=== PATIENT | male | born 2000 | race Two or more races ===

== ENCOUNTER 2025-07-12 20:49 | Emergency (ER) | payer MEDICAID, SELFPAY ==
[2025-07-12 20:58] VITALS: BP 167/91; PULSE 80; RESP 28; TEMP 36.9; O2SAT 100
--- NOTE | 2025-07-12 21:07 | PD.EDRME ---
Rapid Medical Screening Exam [facility] Arrival date/time: 07/12/25 20:49 25M with history of stomach ulcers and marijuana use presents to ED with 1 day of burning ab pain and N/V. Patient has been taking his regular omeprazole. Chief Complaint: Abdominal Pain Time Seen by Provider: 07/12/25 21:05 Vital signs: Vital Signs Temperature 98.5 F 07/12/25 20:58 Pulse Rate 80 07/12/25 20:58 Respiratory Rate 28 H 07/12/25 20:58 Blood Pressure 167/91 H 07/12/25 20:58 Pulse Oximetry (%) 100 07/12/25 20:58 Oxygen Delivery Method Room Air 07/12/25 20:58
[2025-07-12 21:49] LABS: Basophils # (Auto) 0.0 Thou/mm3 (0.0-0.2); Basophils % (Auto) 0 % (0-2.5); Eosinophils # (Auto) 0.0 Thou/mm3 (0.0-0.5); Eosinophils % (Auto) 0 % (0-10); Hematocrit 47.5 % (41.0-53.0); Hemoglobin 17.4 g/dL (13.5-16.0); Immature Granulocytes Auto 0.02 Thou/mm3 (0.00-0.00); Lymphocytes # (Auto) 1.8 Thou/mm3 (1.0-4.8); Lymphocytes % (Auto) 18 % (10-50); Mean Corpuscular HGB Conc 36.6 g/dl (31.0-37.0); Mean Corpuscular Hemoglobin 30.1 pg (25.0-35.0); Mean Corpuscular Volume 82 fL (80-100); Monocytes # (Auto) 0.4 Thou/mm3 (0.0-0.8); Monocytes % (Auto) 4 % (0-12); Neutrophils # (Auto) 7.6 Thou/mm3 (1.8-7.7); Neutrophils % (Auto) 77 % (37-80); Nucleated Red Blood Cell # 0.00 Thou/mm3 (0.00-0.00); Nucleated Red Blood Cell % 0 /100 WBC (0); Platelet Count 272 Thou/mm3 (140-440); RDW Standard Deviation 36.2 fL (35.1-43.9); Red Blood Count 5.79 Miln/mm3 (4.50-5.90); White Blood Count 9.9 Thou/mm3 (3.8-10.6)
[2025-07-12] MEDS: ONDANSETRON INJ 2 MG/ML INJ 2 ML 4 MG IV (21:49)
[2025-07-12] MEDS: MORPHINE SULF INJ 4 MG/ML VIAL IV (21:50)
[2025-07-12 21:52] LABS: Alanine Aminotransferase 54 U/L (10-49); Albumin, Serum 5.6 gm/dL (3.5-5.0); Albumin/Globulin Ratio 2.1 (1.2-2.2); Alkaline Phosphatase 100 U/L (46-116); Amylase 126 U/L (30-118); Anion Gap 13 (7-16); Aspartate Amino Transferase 34 U/L (0-34); BUN/Creatinine Ratio 8 Ratio (12-20); Bilirubin,Total 1.1 mg/dL (0.3-1.2); Blood Urea Nitrogen 9 mg/dL (9-23); Calcium 10.3 mg/dL (8.3-10.6); Calcium (Corrected) 10.3 mg/dL (8.5-10.1); Carbon Dioxide 25.8 mMol/L (20.0-31.0); Chloride 103 mMol/L (98-107); Creatinine (Component) 1.1 mg/dL (0.6-1.3); Globulin 2.7 gm/dL (2.3-3.5); Glucose 106 mg/dL (74-106); Osmolality,Calculated 281 (275-295); Potassium 3.3 mMol/L (3.4-5.1); Sodium 142 mMol/L (136-145); Total Protein 8.3 gm/dL (5.7-8.2); eGFR > 60 See Note
[2025-07-12] MEDS: SODIUM CHLORIDE 0.9% 1000 ML 1,000 ML 999 ML IV (21:53)
[2025-07-12] MEDS: METOCLOPRAMIDE INJ 5 MG/ML VIAL 2 ML 10 MG IVP (21:53)
[2025-07-12 22:00] VITALS: BP 145/71; PULSE 78; RESP 18; TEMP 36.1; O2SAT 98
[2025-07-13] VITALS: BP 148/72; PULSE 64; RESP 16; O2SAT 98
--- NOTE | 2025-07-13 00:14 | XR_ITS ---
Examination: Abdomen sonogram, Limited Date and time of exam: July 13, 2025, 0124 hrs. Technique: Real-time bowman scale transabdominal sonographic images of the upper abdomen obtained. Findings: Normal gallbladder. Normal common bile duct 0.50 cm Pancreas obscured by bowel gas Liver 14.5 cm no liver lesions Normal hepatopedal portal venous flow Patent IVC Impression: Normal gallbladder
--- NOTE | 2025-07-13 01:35 | EDNOTE_ITS ---
ED Abdominal Pain RME/HPI General Chief Complaint: Abdominal Pain Stated complaint: ABDOMINAL PAIN Time seen by provider: 07/12/25 21:05 Arrival date/time: 07/12/25 20:49 RME / HPI RME / HPI narrative: 07/12/25 20:49 25M with history of stomach ulcers and marijuana use presents to ED with 1 day of burning ab pain and N/V. Patient has been taking his regular omeprazole. DR. RITTER MAIN ED EVALUATION: Patient with Hx of presumptive peptic ulcer presenting with predominantly epigastric abdominal pain x several days duration with several bouts of bilius emesis during the day presentation. Reports dark stool though denies hematemesis. No urinary urgency, frequency, or dysuria. No URI symptoms or cough. PMHx: presumptive peptic ulcer. PSHx: unremarkable. Allergies: none. Social Hx: positive for tobacco although denies ethanol, reported marijuana use. Related Data Previous Rx's ?Medication ?Instructions ?Recorded hydrocodone 5 mg-acetaminophen 325 1 tab PO TID PRN pa in #14 tabs 07/13/25 mg tablet metoclopramide HCl 10 mg tablet 10 mg PO Q6H PRN nause a and 07/13/25 vomiting #28 tabs pantoprazole 40 mg tablet,delayed 40 mg PO QDAY #30 ta bs 07/13/25 release Allergies Allergy/AdvReac Type Severity Reaction Status Date / Time No Known Allergies Allergy Verified 07/12/25 20:50 Review of Systems Review of Systems Systems Reviewed: All systems reviewed, normal except as documented Past Medical History Past Medical History GASTROINTESTINAL: Positive Ulcer Social History SMOKING STATUS: Former smoker SUBSTANCE USE: marijuana ED Exam Narrative Physical exam: GEN. APPEARANCE: The patient is alert awake oriented X-3 in no distress, lying down comfortably, does not look ill/toxic. Patient has good eye contact. Patient is cooperative. Reports overall improvement having received propolsive agents and antacid. VITALS: All vitals were reviewed and the pulse ox is 99% on room air which is normal according to my interpretation. HEENT: Normocephalic, atraumatic. Pupils are equal and reactive. Oral mucosa is moist. Patent Nares NECK: Supple, nontender, no thyromegaly, no meningismus, no JVD, no step offs CHEST: Symmetrical, atraumatic, and with equal expansion , Nontender on palpat ion no deformity and no crepitus. CARDIOVASCULAR: Heart regular rhythm no murmur or gallop rub or extra beats. LUNGS: Clear to auscultation bilaterally with symmetrical chest rise. No laboring tachypnea or wheezing. No intercostal subcostal retraction. No rales and no rhonchi. ABDOMEN: Soft, flat, TTP predominantly epigastric RUQ, no gross peritoneal findings. There are no abnormal masses palpated. Active and normal bowel sounds. EXTREMITIES: Nontender. No edema. No cyanosis. Patient is able to move all 4 extremities well, with full ROM and good CSM. SKIN: Warm and dry, no jaundice or rashes noted. MUSCULOSKELETAL: No lubar or midline bony tenderness. There is no CVA tenderness. No paraspinal muscle spasm or tenderness. NEURO: Patient is OSORIO x 4, Cranial nerves II through XII grossly intact. There is no focal neurologic deficits noted. GCS is 15, PNS and OVER HAULER HELPER appear grossly intact. PSYCHIATRIC: Patient is in normal mood and affect, cooperative, no SI or HI or hallucinations. Course Quality Measures none Orders Category Date Time Status Insert IV NOW Care 07/12/25 21:17 Completed US gall bladder Stat Exams 07/13/25 00:14 Taken Amylase Stat Lab 07/12/25 21:27 Completed CBC Stat Lab 07/12/25 21:27 Completed CMP [Comprehensive Metabolic Panel] Stat Lab 07/12/25 21:27 Completed DiphenhydrAMINE INJ [Benadryl Inj] Med 07/12/25 21:18 Discontinued 12.5 mg IVP X1 ONE Famotidine [Pepcid] Med 07/12/25 21:06 Discontinued 40 mg PO X1 ONE Lidocaine 2% Viscous [Xylocaine 2% Viscous] Med 07/12/25 21:06 Discontinued 15 ml PO X1 ONE Metoclopramide Inj [Reglan Inj] Med 07/12/25 21:18 Discontinued 10 mg IVP X1 ONE Morphine* Inj Med 07/12/25 21:37 Discontinued 4 mg IV X1 ONE Morphine* Inj Med 07/12/25 21:35 Discontinued 5 mg IV X1 ONE Ondansetron Inj [Zofran Inj] Med 07/12/25 21:18 Discontinued 4 mg IV X1 ONE Pantoprazole Inj [Protonix Inj] Med 07/12/25 21:17 Discontinued 80 mg IVP X1 ONE Sodium Chloride 0.9% 1000 ml [Ns] 1,000 ml Med 07/12/25 21:17 Discontinued IV 999 mls/hr Vital Signs Vital signs: Vital Signs Temperature 98.5 F 07/12/25 20:58 Pulse Rate 80 07/12/25 20:58 Respiratory Rate 28 H 07/12/25 20:58 Blood Pressure 167/91 H 07/12/25 20:58 Pulse Oximetry (%) 100 07/12/25 20:58 Oxygen Delivery Method Room Air 07/12/25 20:58 PROCEDURES: Stool Hemoccult Procedural Steps Taken: stool placed in appropriate test area, developer placed on stool and control areas and controls appropriately positive and negative Hemoccult result: positive Abdominal Pain MDM MDM Narrative MDM Narrative:: Scribe Attestation: Meena Fermin, yamil scribing for and in the presence of Dr. Ritter. Provider Notation: Although this document has been carefully reviewed, there may still be some phonetic and other typographical errors. These errors are purely grammatical due to imperfections in the software program and should not be construed in any way to compromise the substance of the patient's medical care during this visit. Patient with Hx of presumptive peptic ulcer presenting with predominantly epigastric abdominal pain x several days duration with several bouts of bilius emesis during the day presentation. Reports dark stool though denies hematemesis. No urinary urgency, frequency, or dysuria. Please see PE findings. Laboratory markers demonstrate elevated hemo-concentration with hemoglobin of 17.4, no thrombocytopenia. Serum chemistries demonstrate slightly low potassium of 3.3, normal renal fxn, and slightly elevated amylase 126. Patient was placed on monitor, IV established, patient received GI cocktal in conjucntion with IV narcotic analgesics withe mild to moderate relief. Patient also received antacid and reports overall improvement. Given mildly elevated amylase, and reported dark stool, suspect gastritis vs peptic ulcer disease in the setting of acute pancreatitis. Patient remained hemodynamically stable and if able to tolerate PO will discharge with recommendations of clear liquid diet for 24 -48 hours, narcotic analgesics, and antacids for 7 days. Rectal exam demonstrates dark stool which was hemoccult positive. F/U with GI for endocsopy. Patient data External records reviewed:: [facility] previous records (No prior ED records available for review.) Clinical information provided by:: patient Social determinants that could affect healthcare access:: substance use (Marijuana) Patient has the following chronic illnesses:: None reported How is presenting disease/condition affected by chronic disease/condition?: no chronic disease Evaluation data The following diagnostics were reviewed and interpreted by me:: lab results and radiology exam(s) Lab and/or radiology exams considered but not ordered:: None Interpretation Summary: RADIOLOGY Gall Bladder US: Findings: The visualized liver is normal in echogenicity without mass or ductal dilatation. No gallbladder calculus, wall thickening or pericholecystic fluid is identified. The common duct is normal in caliber at 4.7 mm. No free fluid is demonstrated on the submitted images. The portal vein is patent with hepatopetal flow and normal wave Doppler spectral analysis. The inferior vena cava is patent with normal wave Doppler spectral analysis. Degroot sign is not available at the time of this report. Impression: Unremarkable gallbladder sonogram. Medications / Prescriptions Medications or Prescriptions considered but not ordered:: None Medication administrations:: Medication Administration History Discontinued Medications Diphenhydramine HCl (Diphenhydramine Inj 50 Mg/Ml Vial) 12.5 mg IVP X1 ONE Stop: 07/12/25 21:19 Last Admin: 07/12/25 21:51 Dose: 12.5 mg Documented By: SHERON Famotidine (Famotidine 20 Mg Tablet) 40 mg PO X1 ONE Stop: 07/12/25 21:07 Last Admin: 07/12/25 22:03 Dose: Not Given Documented By: SHERON Non-Admin Reason: Cancelled by Provider Sodium Chloride (Ns) 1,000 mls @ 999 mls/hr IV .Q1H1M ONE Stop: 07/12/25 22:17 Last Infusion: 07/13/25 00:00 Dose: Infused Documented By: Admin: 07/12/25 21:53 Dose: 999 mls/hr Documented By: SHERON Lidocaine HCl (Lidocaine Viscous 2% 15 Ml Udc) 15 ml PO X1 ONE Stop: 07/12/25 21:07 Last Admin: 07/12/25 22:03 Dose: Not Given Documented By: SHERON Non-Admin Reason: Cancelled by Provider Metoclopramide HCl (Metoclopramide Inj 5 Mg/Ml Vial 2 Ml) 10 mg IVP X1 ONE; Protocol Stop: 07/12/25 21:19 Last Admin: 07/12/25 21:53 Dose: 10 mg Documented By: SHERON Morphine Sulfate (Morphine Sulf Inj 4 Mg/Ml Vial) 5 mg IV X1 ONE Stop: 07/12/25 21:36 Last Admin: 07/12/25 22:04 Dose: Not Given Documented By: SHERON Non-Admin Reason: Cancelled by Provider Morphine Sulfate (Morphine Sulf Inj 4 Mg/Ml Vial) 4 mg IV X1 ONE Stop: 07/12/25 21:38 Last Admin: 07/12/25 21:50 Dose: 4 mg Documented By: SHERON Comments: over 2 min IV Ondansetron HCl (Ondansetron Inj 2 Mg/Ml Inj 2 Ml) 4 mg IV X1 ONE; Protocol Stop: 07/12/25 21:19 Last Admin: 07/12/25 21:49 Dose: 4 mg Documented By: SHERON Pantoprazole Sodium (Pantoprazole Inj 40 Mg Vial) 80 mg IVP X1 ONE Stop: 07/12/25 21:18 Last Admin: 07/12/25 21:52 Dose: 80 mg Documented By: SHERON See above if any Consultations Consultation(s) initiated? (list below): No Diagnosis Differential diagnosis abdominal pain: abdominal pain, acute appendicitis, carmelo culus of kidney, constipation, diverticulitis, gastroenteritis, pancreatitis and small bowel obstruction Most likely diagnosis given after review of the tests above:: Acute pancreatitis, Acute gastritis, Acute upper gastrointestinal bleeding Admission Indicated Admission indicated?: not indicated Explain why admission is indicated or not indicated:: Patient does not meet admission criteria Admission Request Was there a request for admission?: No Disposition Plan Disposition Plan: Discharge Discharge Attestation Discharge Attestation: The patient and all family members were given an opportunity to ask questions and understood the discharge instructions. Discharge instructions specifically effects, indications for sooner follow up or return to the emergency department, and the expected course of current diagnosis. Patient condition: Stable Discharge Plan Plan Patient Disposition: HOME (Self Care) Discharge Disposition comment: Stable Prescriptions/Referrals Prescriptions/Med Rec: New hydrocodone-acetaminophen 5-325 mg tablet 1 tab PO TID MDD 3 tab PRN (Reason: pain) Qty: 14 0RF pantoprazole 40 mg tablet,delayed release (DR/EC) 40 mg PO QDAY Qty: 30 0RF metoclopramide HCl 10 mg tablet 10 mg PO Q6H PRN (Reason: nausea and vomiting) Qty: 28 0RF Referrals: No Primary/Family,Physician [Primary Care Provider] - In 1 week Problem List Clinical Impression: Acute pancreatitis, Acute gastritis, Pancreatitis, Acute upper gastrointestinal bleeding Patient/Caregiver Discharge Instructions Discharge Activity: activity as tolerated Diet Instructions: Avoid hot spicy foods. No aspirin like products. Avoid alcohol consumption and tobacco usage Education Materials: Pancreatitis Acute Dc, ED Gastritis (Adult), ED Pancreatitis Additional Instructions: Medication as directed. Follow-up with GI for consideration of upper endoscopy. Return for persistent dark tarry stools/vomiting gross blood etc. Print Language: Kittitian Stand Alone Forms: Mary Ellen Award Info., Patient Portal Info Letter
[2025-07-13 01:56] VITALS: BP 141/69; PULSE 61; RESP 18; TEMP 36.6; O2SAT 99
--- NOTE | 2025-07-13 02:00 | PRELIM_ITS ---
Gallbladder ultrasound with Doppler and wave Doppler spectral analysis. July 13, 2025 0124 hours Clinical history: Epigastric pain Comparison: None available at the time of this report. Findings: The visualized liver is normal in echogenicity without mass or ductal dilatation. No gallbladder calculus, wall thickening or pericholecystic fluid is identified. The common duct is normal in caliber at 4.7 mm. No free fluid is demonstrated on the submitted images. The portal vein is patent with hepatopetal flow and normal wave Doppler spectral analysis. The inferior vena cava is patent with normal wave Doppler spectral analysis. Degroot sign is not available at the time of this report. Impression: Unremarkable gallbladder sonogram. Report Electronically Signed By: Wild Alexander 07/13/2025 1:59:34 AM [EST]
[2025-07-13 02:45] VITALS: BP 113/64; PULSE 53; RESP 16; TEMP 37; O2SAT 96
[2025-07-13 03:11] VITALS: BP 148/77; PULSE 70; RESP 18; TEMP 36.7; O2SAT 99
== END 2025-07-13 03:13 | disposition home or self-care (01) ==
PROVIDERS: Physician Assistant; Emergency Provider Emergency Medicine
DX: K85.90 Acute pancreatitis without necrosis or infection, unspecified (principal); K29.01 Acute gastritis with bleeding
CPT/HCPCS: 36415; 76705; 80053; 82150; 85025; 99283; J1200; J2270; J2405; J2470; J2765; J7030

== ENCOUNTER 2025-10-24 11:04 | Emergency (ER) | payer MEDICAID, SELFPAY ==
[2025-10-24 11:24] VITALS: BP 152/95; PULSE 64; RESP 21; TEMP 36.8; O2SAT 100; BMI 31.2
--- NOTE | 2025-10-24 11:26 | XR_ITS ---
Examination: Abdomen sonogram, Limited Date and time of exam: October 24, 2025, 1350 hours INDICATIONS: Right upper abdominal pain beginning 1 week ago Technique: Real-time bowman scale transabdominal sonographic images of the upper abdomen obtained. Findings: Normal gallbladder Normal common bile duct 0.1 cm Pancreatic head 2.9 cm Liver 14.5 cm no liver lesions Normal hepatopetal portal venous flow Patent IVC IMPRESSION: Negative study
--- NOTE | 2025-10-24 11:28 | PD.EDRME ---
Rapid Medical Screening Exam RME Arrival date/time: 10/24/25 11:04 25-year-old male presents to the Emergency Department of complaint of nausea vomiting and abdominal pain Chief Complaint: Nausea/Vomiting/Diarrhea Vital signs: Vital Signs Temperature 98.3 F 10/24/25 11:24 Pulse Rate 64 10/24/25 11:24 Respiratory Rate 21 H 10/24/25 11:24 Blood Pressure 152/95 H 10/24/25 11:24 Pulse Oximetry (%) 100 10/24/25 11:24 Oxygen Delivery Method Room Air 10/24/25 11:24 Vital signs reviewed by provider: Yes Exam: On exam well-appearing does not appear ill or toxic no acute distress Clinical Impression: Lab work imaging obtained patient given medication for nausea vomiting
[2025-10-24] MEDS: METOCLOPRAMIDE INJ 5 MG/ML VIAL 2 ML 10 MG IM (11:57)
[2025-10-24] MEDS: HYDROmorphone INJ 2 MG/ML VIAL 0.5 MG IM (12:07)
[2025-10-24 12:14] LABS: Basophils # (Auto) 0.1 Thou/mm3 (0.0-0.2); Basophils % (Auto) 0 % (0-2.5); Eosinophils # (Auto) 0.0 Thou/mm3 (0.0-0.5); Eosinophils % (Auto) 0 % (0-10); Hematocrit 47.9 % (41.0-53.0); Hemoglobin 16.7 g/dL (13.5-16.0); Immature Granulocytes Auto 0.06 Thou/mm3 (0.00-0.00); Lymphocytes # (Auto) 1.8 Thou/mm3 (1.0-4.8); Lymphocytes % (Auto) 12 % (10-50); Mean Corpuscular HGB Conc 34.9 g/dl (31.0-37.0); Mean Corpuscular Hemoglobin 28.7 pg (25.0-35.0); Mean Corpuscular Volume 82 fL (80-100); Monocytes # (Auto) 0.4 Thou/mm3 (0.0-0.8); Monocytes % (Auto) 3 % (0-12); Neutrophils # (Auto) 11.9 Thou/mm3 (1.8-7.7); Neutrophils % (Auto) 84 % (37-80); Nucleated Red Blood Cell # 0.00 Thou/mm3 (0.00-0.00); Nucleated Red Blood Cell % 0 /100 WBC (0); Platelet Count 283 Thou/mm3 (140-440); RDW Standard Deviation 36.8 fL (35.1-43.9); Red Blood Count 5.82 Miln/mm3 (4.50-5.90); White Blood Count 14.2 Thou/mm3 (3.8-10.6)
[2025-10-24 12:39] LABS: Alanine Aminotransferase 52 U/L (10-49); Albumin, Serum 5.6 gm/dL (3.5-5.0); Albumin/Globulin Ratio 1.8 (1.2-2.2); Alkaline Phosphatase 102 U/L (46-116); Anion Gap 14 (7-16); Aspartate Amino Transferase 32 U/L (0-34); BUN/Creatinine Ratio 9 Ratio (12-20); Bilirubin,Total 1.0 mg/dL (0.3-1.2); Blood Urea Nitrogen 9 mg/dL (9-23); Calcium 9.8 mg/dL (8.3-10.6); Calcium (Corrected) 9.8 mg/dL (8.5-10.1); Carbon Dioxide 26.9 mMol/L (20.0-31.0); Chloride 103 mMol/L (98-107); Creatinine (Component) 1.0 mg/dL (0.6-1.3); Estimated Creatinine Clearance 115.2 mL/min (>60); Globulin 3.2 gm/dL (2.3-3.5); Glucose 118 mg/dL (74-106); Lipase 34 U/L (12-53); Osmolality,Calculated 286 (275-295); Potassium 3.9 mMol/L (3.4-5.1); Sodium 144 mMol/L (136-145); Total Protein 8.8 gm/dL (5.7-8.2); eGFR > 60 See Note
[2025-10-24 14:21] VITALS: BP 139/89; PULSE 64; RESP 18; TEMP 36.9; O2SAT 99
[2025-10-24] MEDS: ONDANSETRON INJ 2 MG/ML INJ 2 ML 4 MG IM (15:08)
--- NOTE | 2025-10-24 15:39 | XR_ITS ---
Examination: CT abdomen and pelvis without contrast. Coronal 3-D reconstructions. Sagittal 2-D reconstructions. Date and time of exam: October 24, 2025, 1622 hours INDICATIONS: Lower abdominal pain with nausea today CTDI: vol (mGy): 8.62 DLP: (mGycm): 520 Technique: Axial images of the abdomen have been obtained, 3 mm slice thickness Intravenous contrast material has not been administered. Low dose protocols were performed. One or more of the following dose reduction techniques were used; automated exposure control, adjustment of the mA and/or KV according to patient size, use of iterative reconstruction technique. Findings: No visualized liver or splenic lesion No gallstones No pancreatic or adrenal mass No renal or ureteral calculi, no hydronephrosis Aorta normal size 10 mm fat-containing umbilical hernia Normal appendix No bowel obstruction No diverticulitis Normal seminal vesicles Normal prostate Contracted urinary bladder Intact osseous structures IMPRESSION: No renal or ureteral calculi, no hydronephrosis Normal appendix No bowel obstruction diverticulitis or free air
[2025-10-24] MEDS: HYDROmorphone INJ 2 MG/ML VIAL 1 MG IVP (16:10)
[2025-10-24] MEDS: PROCHLORPERAZINE INJ 5 MG/ML VIAL 2 ML 10 MG IV (16:10)
[2025-10-24 16:16] VITALS: BP 155/75; PULSE 75; RESP 18; TEMP 37.2; O2SAT 95
[2025-10-24 16:25] LABS: Collection Type, Urine Clean Catch
[2025-10-24 16:40] LABS: Amphetamine/Methamp Scrn,U Negative (Negative); Barbiturate Screen,Urine Negative (Negative); Benzodiazepines Screen,Urine Negative (Negative); Benzoylecgonine Screen, Ur Negative (Negative); Fentanyl Screen,Urine Negative (Negative); Opiate Screen,Urine Positive (Negative); THC Screen,Urine Positive (Negative)
[2025-10-24 16:53] LABS: Bacteria,Urine Rare; Bilirubin,Urine Negative (Negative); Blood,Urine Negative (Negative); Clarity,Urine Clear (Clear/Hazy); Color,Urine Yellow (Lt Yel-Yel); Culture Indicated,Urine Not Indicated; Glucose, Urine Negative (Negative); Ketones,Urine Trace (Negative); Leukocyte Esterase,Urine Negative (Negative); Nitrite,Urine Negative (Negative); PH,Urine 7.0 (5.0-7.0); Protein,Urine 1+ (Neg - Trace); RBC,Urine 9 /hpf (0-3); Specific Gravity,Urine 1.025 (1.001-1.035); Squamous Epithelial Cell,Urine < 1 /hpf (0-5); Urobilinogen,Urine Negative mg/dL (0.0-1.0); WBC,Urine 1 /hpf (0-5)
[2025-10-24 17:30] VITALS: BP 125/74; PULSE 73; RESP 18; TEMP 36.7; O2SAT 97
[2025-10-24 20:18] VITALS: BP 139/73; PULSE 70; RESP 20; TEMP 36.9; O2SAT 96
--- NOTE | 2025-10-24 21:27 | EDNOTE_ITS ---
Nausea/Vomit./Diarrhea-RME/HPI General Chief complaint: Nausea/Vomiting/Diarrhea Stated complaint: Vomiting this morning, abdominal pain Time Seen by Provider: 10/24/25 11:52 Source: patient Arrival date/time: 10/24/25 11:04 Mode of arrival: ambulatory Limitations: language barrier RME / HPI RME / HPI Narrative: 10/24/25 11:04 25-year-old male presents to the Emergency Department of complaint of nausea vomiting and abdominal pain Exam: On exam patient appears mildly toxic with diffuse abdominal pain concerns. Impression: Lab work imaging obtained patient given medication for nausea vomiting Related Data Previous Rx's ?Medication ?Instructions ?Recorded hydrocodone 5 mg-acetaminophen 325 1 tab PO TID PRN pa in #14 tabs 07/13/25 mg tablet metoclopramide HCl 10 mg tablet 10 mg PO Q6H PRN nause a and 07/13/25 vomiting #28 tabs pantoprazole 40 mg tablet,delayed 40 mg PO QDAY #30 ta bs 07/13/25 release acetaminophen 500 mg tablet 500 mg PO Q4H PRN fever or pain 10/24/25 (Tylenol Extra Strength) #30 tabs dicyclomine 10 mg capsule 10 mg PO QID PRN abdominal p ain 10/24/25 #20 caps metoclopramide HCl 10 mg tablet 10 mg PO Q6H PRN nause a and 10/24/25 (Reglan) vomiting #15 tabs ondansetron 4 mg disintegrating 4 mg PO Q6H PRN nausea and 10/24/25 tablet vomiting #20 tabs Allergies Allergy/AdvReac Type Severity Reaction Status Date / Time No Known Allergies Allergy Verified 10/24/25 11:08 Review of Systems Review of Systems Systems Reviewed: All systems reviewed, normal except as documented Past Medical History Past Medical History CARDIAC: Negative Cardiac Disorders or Congestive Heart Failure RESPIRATORY: Negative Chronic Obstructive Pulmonary Disease (COPD) or Asthma GASTROINTESTINAL: Positive Ulcer GENITOURINARY: Negative Renal Disease ENDOCRINE: Negative Diabetes Mellitus Type 1 or Diabetes Mellitus Type 2 HEMATOLOGIC: Negative Sickle Cell Disease Social History SMOKING STATUS: Current every day smoker SUBSTANCE USE: marijuana ED Exam Narrative Physical exam: Patient appears mildly toxic at time of evaluation with diffuse abdominal pain concerns. General Limitations: Present language barrier General appearance: Present alert and in distress Head Head exam: Present atraumatic Eye Eye exam: Present normal appearance, PERRL and EOMI ENT ENT exam: Present normal exam, normal oropharynx and mucous membranes moist Neck Neck exam: Present normal inspection, full ROM and trachea midline Chest Chest inspection: Present normal inspection and symmetric chest wall rise Respiratory Respiratory exam: Present normal lung sounds bilaterally Cardiovascular Cardiovascular exam: Present regular rate, normal rhythm and normal heart sounds Abdominal Exam Abdominal exam: Present other (Diffuse nonspecific abdominal tenderness to palpation throughout the epigastric region and radiating down to the right upper quadrant to the right lower quadrant. No definitive Degroot or McBurney's noted. Abdomen was reasonably soft. No pulsatile masses.) Abdominal tenderness: Present RUQ, RLQ, epigastrium and diffuse Extremities Exam Extremities exam: Present normal inspection and full ROM Back Exam Back exam: Present normal inspection and full ROM Neurological Exam Neurological exam: Present alert, oriented X3 and CN II-XII intact Psychiatric Psychiatric exam: Present normal affect and normal mood Skin Skin exam: Present warm, dry, intact and normal color Course Quality Measures none Orders Category Date Time Status CT abdomen pelvis wo con Stat Exams 10/24/25 15:39 Completed US gall bladder Stat Exams 10/24/25 11:26 Completed CBC Stat Lab 10/24/25 11:57 Completed Comprehensive Metabolic Panel Stat Lab 10/24/25 11:57 Completed Drug Screen,Urine Stat Lab 10/24/25 15:55 Completed Lipase Stat Lab 10/24/25 11:57 Completed UA, C/S IF [Urinalysis, C/S if Indicated] Stat Lab 10/24/25 15:55 Completed HYDROmorphone INJ [Dilaudid Inj] Med 10/24/25 11:57 Discontinued 0.5 mg IM X1 ONE HYDROmorphone INJ [Dilaudid Inj] Med 10/24/25 15:39 Discontinued 1 mg IVP X1 ONE Metoclopramide Inj [Reglan Inj] Med 10/24/25 11:27 Discontinued 10 mg IM X1 ONE Ondansetron Inj [Zofran Inj] Med 10/24/25 14:49 Discontinued 4 mg IM X1 ONE Prochlorperazine Inj [Compazine Inj] Med 10/24/25 15:39 Discontinued 10 mg IV X1 ONE As noted above Vital Signs Vital signs: Vital Signs Temperature 98.3 F 10/24/25 11:24 Pulse Rate 64 10/24/25 11:24 Respiratory Rate 21 H 10/24/25 11:24 Blood Pressure 152/95 H 10/24/25 11:24 Pulse Oximetry (%) 100 10/24/25 11:24 Oxygen Delivery Method Room Air 10/24/25 11:24 As noted above Nausea/Vomiting/Diarrhea MDM Narrative MDM Narrative:: All studies performed the ED were evaluated by me personally. Serum studies were relatively unremarkable for any systemic concerns. Ultrasound of the right upper quadrant was unremarkable for any definitive cholecystitis, but the patient continued to complain of significant pain. CT evaluation was ordered and results were unremarkable for any acute findings. No pancreatitis noted. No hepatomegaly or hepatic steatosis noted. Patient appears to be suffering from a gastroenteritis event. Advised medication as needed for symptomatic relief as well as good hydration and healthy nutrition. Patient data External records reviewed:: [facility] previous records Clinical information provided by:: patient Social determinants that could affect healthcare access:: none Patient has the following chronic illnesses:: None How is presenting disease/condition affected by chronic disease/condition?: uneffected by Evaluation data The following diagnostics were reviewed and interpreted by me:: lab results and radiology exam(s) Lab and/or radiology exams considered but not ordered:: None Interpretation Summary: Viral gastroenteritis Medications / Prescriptions Medications / Prescriptions considered but not ordered:: None Medication administrations:: Medication Administration History Discontinued Medications Hydromorphone HCl (Hydromorphone Inj 2 Mg/Ml Vial) 0.5 mg IM X1 ONE Stop: 10/24/25 11:58 Last Admin: 10/24/25 12:07 Dose: 0.5 mg Documented By: MORIS Hydromorphone HCl (Hydromorphone Inj 2 Mg/Ml Vial) 1 mg IVP X1 ONE Stop: 10/24/25 15:40 Last Admin: 10/24/25 16:10 Dose: 1 mg Documented By: AC Metoclopramide HCl (Metoclopramide Inj 5 Mg/Ml Vial 2 Ml) 10 mg IM X1 ONE; Protocol Stop: 10/24/25 11:28 Last Admin: 10/24/25 11:57 Dose: 10 mg Documented By: Ondansetron HCl (Ondansetron Inj 2 Mg/Ml Inj 2 Ml) 4 mg IM X1 ONE; Protocol Stop: 10/24/25 14:50 Last Admin: 10/24/25 15:08 Dose: 4 mg Documented By: MARYBETH Prochlorperazine Edisylate (Prochlorperazine Inj 5 Mg/Ml Vial 2 Ml) 10 mg IV X1 ONE; Protocol Stop: 10/24/25 15:40 Last Admin: 10/24/25 16:10 Dose: 10 mg Documented By: MARYBETH As noted above Consultations Consultation(s) initiated? (list below): No Diagnosis Nausea Differential Diagnosis: other (Pancreatitis, hepatic steatosis, cholecystitis, choledocholithiasis, gastroenteritis) Most likely diagnosis given after review of the tests above:: Gastroenteritis Admission Indicated Admission indicated?: not indicated Explain why admission is indicated or not indicated:: Unwarranted Admission Request Was there a request for admission?: No Disposition Plan Disposition Plan: Discharge Discharge Attestation Discharge Attestation: The patient and all family members were given an opportunity to ask questions and understood the discharge instructions. Discharge instructions specifically effects, indications for sooner follow up or return to the emergency department, and the expected course of current diagnosis. Patient condition: Stable Discharge Plan Plan Patient Disposition: HOME (Self Care) Prescriptions/Referrals Prescriptions/Med Rec: New ondansetron 4 mg tablet,disintegrating 4 mg PO Q6H PRN (Reason: nausea and vomiting) Qty: 20 0RF dicyclomine 10 mg capsule 10 mg PO QID PRN (Reason: abdominal pain) Qty: 20 0RF metoclopramide HCl [Reglan] 10 mg tablet 10 mg PO Q6H PRN (Reason: nausea and vomiting) Qty: 15 0RF acetaminophen [Tylenol Extra Strength] 500 mg tablet 500 mg PO Q4H PRN (Reason: fever or pain) Qty: 30 0RF No Action hydrocodone-acetaminophen 5-325 mg tablet 1 tab PO TID MDD 3 tab PRN (Reason: pain) Qty: 14 0RF pantoprazole 40 mg tablet,delayed release (DR/EC) 40 mg PO QDAY Qty: 30 0RF metoclopramide HCl 10 mg tablet 10 mg PO Q6H PRN (Reason: nausea and vomiting) Qty: 28 0RF Referrals: No Primary/Family,Physician [Primary Care Provider] - In 1 week Problem List Clinical Impression: Gastroenteritis Patient/Caregiver Discharge Instructions Education Materials: ED Gastroenteritis, Noninfectious Print Language: Kazakh Stand Alone Forms: Mary Ellen Award Info., Patient Portal Info Letter
[2025-10-24 21:46] VITALS: BP 147/77; PULSE 85; RESP 18; TEMP 37.3; O2SAT 99
== END 2025-10-24 21:56 | disposition home or self-care (01) ==
PROVIDERS: Nurse Practitioner Primary Care; Emergency Provider Family Medicine
DX: K52.9 Noninfective gastroenteritis and colitis, unspecified (principal)
CPT/HCPCS: 36415; 74176; 76705; 80053; 80307; 81001; 83690; 85025; 96372; 96374; 96375; 99284; J0780; J1171; J2405; J2765

== ENCOUNTER 2025-10-24 23:41 | Emergency (ER) | payer MEDICAID, SELFPAY ==
[2025-10-24 23:42] VITALS: BMI 30.9
[2025-10-24 23:56] VITALS: BP 153/72; PULSE 75; RESP 20; TEMP 36.9; O2SAT 97
--- NOTE | 2025-10-25 00:11 | PD.EDANX ---
ED Anxiety RME/HPI General Chief Complaint: General Adult/Misc Complain Stated Complaint: MEDICATION REACTION Time Seen by Provider: 10/25/25 00:01 Arrival date/time: 10/24/25 23:41 25M with history of gastritis presents to ED with generalized restlessness and anxiety and been given IV Reglan and Compazine earlier today during previous visit. Limitations: no limitations Related Data Previous Rx's ?Medication ?Instructions ?Recorded hydrocodone 5 mg-acetaminophen 325 1 tab PO TID PRN pain #14 tabs 07/13/25 mg tablet metoclopramide HCl 10 mg tablet 10 mg PO Q6H PRN nausea and 07/13/25 vomiting #28 tabs pantoprazole 40 mg tablet,delayed 40 mg PO QDAY #30 tabs 07/13/25 release acetaminophen 500 mg tablet 500 mg PO Q4H PRN fever or pain 10/24/25 (Tylenol Extra Strength) #30 tabs dicyclomine 10 mg capsule 10 mg PO QID PRN abdominal pain 10/24/25 #20 caps metoclopramide HCl 10 mg tablet 10 mg PO Q6H PRN nausea and 10/24/25 (Reglan) vomiting #15 tabs ondansetron 4 mg disintegrating 4 mg PO Q6H PRN nausea and 10/24/25 tablet vomiting #20 tabs Allergies Allergy/AdvReac Type Severity Reaction Status Date / Time No Known Allergies Allergy Verified 10/24/25 23:44 Review of Systems Review of Systems Systems Reviewed: All systems reviewed, normal except as documented Neurologic Neurologic: Reports as per HPI and Reports other (restlessness) Psychiatric Psychiatric: Reports as per HPI and Reports anxiety Past Medical History Past Medical History CARDIAC: Negative Cardiac Disorders or Congestive Heart Failure RESPIRATORY: Negative Chronic Obstructive Pulmonary Disease (COPD) or Asthma GASTROINTESTINAL: Positive Ulcer GENITOURINARY: Negative Renal Disease ENDOCRINE: Negative Diabetes Mellitus Type 1 or Diabetes Mellitus Type 2 HEMATOLOGIC: Negative Sickle Cell Disease Social History SMOKING STATUS: Current some day smoker SUBSTANCE USE: marijuana ED Exam General Limitations: Present no limitations General appearance: Present alert and anxious Head Head exam: Present atraumatic Neck Neck exam: Present normal inspection, full ROM and trachea midline Chest Chest inspection: Present normal inspection and symmetric chest wall rise Neurological Exam Neurological exam: Present alert and oriented X3 Psychiatric Psychiatric exam: Present normal affect and anxious Skin Skin exam: Present warm, dry, intact and normal color Course Quality Measures none Orders Category Date Time Status DiphenhydrAMINE INJ [Benadryl Inj] Med 10/25/25 00:01 Discontinued 50 mg IM X1 ONE Vital Signs Vital signs: Vital Signs Temperature 98.4 F 10/24/25 23:56 Pulse Rate 75 10/24/25 23:56 Respiratory Rate 20 10/24/25 23:56 Blood Pressure 153/72 H 10/24/25 23:56 Pulse Oximetry (%) 97 10/24/25 23:56 Oxygen Delivery Method Room Air 10/24/25 23:56 Anxiety MDM Narrative MDM Narrative: 25M with history of gastritis presents to ED with generalized restlessness and anxiety and been given IV Reglan and Compazine earlier today during previous visit. Physical exam reveals generalized restlessness. Patient is afebrile, alert, but anxious. Benadryl relieved symptoms. Bus Aide given. Patient data External records reviewed:: [facility] previous records Clinical information provided by:: patient Social determinants that could affect healthcare access:: none Patient has the following chronic illnesses:: gastritis How is presenting disease/condition affected by chronic disease/condition?: exacerbated by Evaluation data The following diagnostics were reviewed and interpreted by me:: other (specify) (none) Lab and/or radiology exams considered but not ordered:: not ordered Interpretation Summary: n/a Medications / Prescriptions Medications or Prescriptions considered but not ordered:: ordered Medication administrations:: Medication Administration History Discontinued Medications Diphenhydramine HCl (Diphenhydramine Inj 50 Mg/Ml Vial) 50 mg IM X1 ONE Stop: 10/25/25 00:02 Consultations Consultation(s) initiated? (list below): No Diagnosis Differential diagnosis anxiety: hyperventilation, panic disorder, acute anxiety and other (drug adverse reaction) Most likely diagnosis given after review of the tests above:: drug adverse reaction Admission Indicated Admission indicated?: not indicated Admission Request Was there a request for admission?: No Disposition Plan Disposition Plan: Discharge Discharge Attestation Discharge Attestation: The patient and all family members were given an opportunity to ask questions and understood the discharge instructions. Discharge instructions specifically effects, indications for sooner follow up or return to the emergency department, and the expected course of current diagnosis. Patient condition: Stable Discharge Plan Plan Patient Disposition: HOME (Self Care) Discharge Disposition comment: Stable Prescriptions/Referrals Prescriptions/Med Rec: No Action hydrocodone-acetaminophen 5-325 mg tablet 1 tab PO TID MDD 3 tab PRN (Reason: pain) Qty: 14 0RF pantoprazole 40 mg tablet,delayed release (DR/EC) 40 mg PO QDAY Qty: 30 0RF metoclopramide HCl 10 mg tablet 10 mg PO Q6H PRN (Reason: nausea and vomiting) Qty: 28 0RF ondansetron 4 mg tablet,disintegrating 4 mg PO Q6H PRN (Reason: nausea and vomiting) Qty: 20 0RF dicyclomine 10 mg capsule 10 mg PO QID PRN (Reason: abdominal pain) Qty: 20 0RF metoclopramide HCl [Reglan] 10 mg tablet 10 mg PO Q6H PRN (Reason: nausea and vomiting) Qty: 15 0RF acetaminophen [Tylenol Extra Strength] 500 mg tablet 500 mg PO Q4H PRN (Reason: fever or pain) Qty: 30 0RF Problem List Clinical Impression: Adverse drug reaction Patient/Caregiver Discharge Instructions Education Materials: ED Drug Reaction, Other Additional Instructions: Please follow-up with PCP within 24-48 hours and return immediately if symptoms worsen. Be careful about taking too much of the prescribed Reglan. If this happens again, take some OTC Benadryl. Print Language: South Korean Stand Alone Forms: Patient Portal Info Letter PA/[employer] Supervising Physician LILIANA/ARIEL Supervising Physician: Dr. Fraire
== END 2025-10-25 02:21 | disposition home or self-care (01) ==
LOC: SERX 10-25 00:28
PROVIDERS: Emergency Provider Emergency Medicine
DX: F41.9 Anxiety disorder, unspecified (principal); R45.1 Restlessness and agitation; T45.0X5A Adverse effect of antiallergic and antiemetic drugs, initial encounter; T43.3X5A Adverse effect of phenothiazine antipsychotics and neuroleptics, initial encounter
CPT/HCPCS: 96372; 99282; 99283; J1200

== ENCOUNTER 2025-10-25 18:29 | Emergency (ER) | payer MEDICAID, SELFPAY ==
[2025-10-25 18:29] VITALS: BMI 30.9
[2025-10-25 18:56] VITALS: BP 162/80; PULSE 77; RESP 18; TEMP 36.9; O2SAT 100
--- NOTE | 2025-10-25 20:11 | PC.NURSE ---
NO ANSWER AT ER LOBBY OR OUTSIDE ER FOR MEDS.
--- NOTE | 2025-10-25 20:38 | PC.NURSE ---
NO ANSWER AT ER LOBBY OR OUTSIDE ER TO BE GIVEN MEDS.
--- NOTE | 2025-10-25 20:51 | PC.NURSE ---
NO ANSWER AT ER LOBBY OR OUTSIDE ER.
--- NOTE | 2025-10-25 21:04 | EDRME_ITS ---
Rapid Medical Screening Exam RME Arrival date/time: 10/25/25 18:29 Chief Complaint: Abdominal Pain Time Seen by Provider: 10/25/25 18:48 Vital signs: Vital Signs Temperature 98.4 F 10/25/25 18:56 Pulse Rate 77 10/25/25 18:56 Respiratory Rate 18 10/25/25 18:56 Blood Pressure 162/80 H 10/25/25 18:56 Pulse Oximetry (%) 100 10/25/25 18:56 Oxygen Delivery Method Room Air 10/25/25 18:56 Vital signs reviewed by provider: Yes RME Narrative: This patient is a Ukrainian-speaking only 25-year-old male who returns to the ED today for reevaluation of abdominal pain concerns. Patient was seen at this facility multiple times yesterday for same complaints. Patient was sent home with a diagnosis of viral gastroenteritis. Patient returns today stating that his nausea and vomiting is making it such that he cannot take his other medications. Patient was mildly hypertensive on arrival. Patient was afebrile. Exam: Patient was then moderate pain due to belly pain concerns. Patient looked mildly toxic. Clinical Impression: This patient is suffering from a gastroenteritis event. We will IM medicate him and I have advised him to utilize medications on schedule at home. Nursing attempted multiple times to locate this patient, but it appears the patient has eloped to the facility.
== END 2025-10-25 20:58 | disposition left against medical advice (07) ==
LOC: SERX 19:16
PROVIDERS: Emergency Provider Emergency Medicine; PCP Family Medicine
DX: K52.9 Noninfective gastroenteritis and colitis, unspecified (principal); Z53.29 Procedure and treatment not carried out because of patient's decision for other reasons
CPT/HCPCS: 99281